=== PATIENT | female | born 1950 | race Caucasian/White ===

== ENCOUNTER 2024-08-21 15:19 | Outpatient (AMB) | payer OTHER, SELFPAY ==
--- NOTE | 2024-08-21 15:22 | A.OFFVIS_ITS ---
Vital Signs 08/21/24 15:32 Height 4 ft 11 in Weight 105 lb 13.15 oz BMI 21.4 BP 156/74 H Blood Pressure Location Lt brachial Position Sitting Pulse 75 Intake Visit Reasons: ibs Intake Note: Lynn presents in the office as a new patient for IBS. CC: She is here today for IBS - she has pains in the stomach and irregular bowel movements. She has been through a lot of tests for years now and she has not seen a GI specialists in 6 years. The one that she was seeing retired and now she is needing to be seen. She is having some flare ups and feels she is due to be seen by someone. Ballast Inspector Required: No Allergies No Known Allergies Allergy (Verified 08/21/24 15:33) HPI Comments Details: 73 y.o F with PMH of lonstanding IBS who is here to establish care. Was initially dx in 1994. Sx are mid epigastric pain which is sharp assoc with nausea and vomiting, diarrhea. Typically subsides within a day - better with resting/sleeping. At one point was seeing Dr Degroot and diagnosed with crohns ??based on UGIS. Pt states that had normal egd/colo prior to this which did not have abnormal Bx. Was on azathioprine but developed pancytopenia from this so self discontinued. Did not get any flares up. Switched care to Nancy Garcia. According to her review of the records at that time pt never had crohns. Currently, has been having more sx than usual for the past 2-3 months. Predominantly has diarrhea even without abd pain. Describes 3-4 loose watery BMs per day with urgency. No blood in stool. No night time sx. Imodium takes care of this in 2-3 doses. Also is bloated. Has been using gasex. No unintentional weight loss. Also thinks has lactose intolerance. Sx better if takes lactaid. Last colo - 2012. Normal. No fam hx of CRC. Remote smoking hx. No etOH use. Secondly, pt also reports dry cough worse x 2-3 months. Already on OTC PPI x [address] with nodules. Has not had PFTs. Records from [facility] and [facility] reviewed. Low iron sat on most recent labs without anemia. Vit D reported normal by pt. Review of Systems Const All systems reviewed & are unremarkable except as noted in HPI and below Physical Exam Vital Signs: Last Vital Signs Pulse 75 08/21/24 15:32 BP 156/74 H 08/21/24 15:32 BMI result Body Mass Index 21.4 No apparent distress Nonicteric Abdomen soft, nondistended Alert and oriented x3, normal gait Assessment & Plan Assessment & Plan (1) Change in bowel habit: Code(s): R19.4 - Change in bowel habit Category: Medical (2) Chronic diarrhea: Code(s): K52.9 - Noninfective gastroenteritis and colitis, unspecified Category: Medical (3) Malabsorption: Code(s): K90.9 - Intestinal malabsorption, unspecified Category: Medical (4) GERD (gastroesophageal reflux disease): Code(s): K21.9 - Gastro-esophageal reflux disease without esophagitis Category: Medical Plan 1. Reports frequent loose BMs x 2-3 months. Ddx include IBS flare, IBD, malabsorption, SIBO. Plan: - Labs as below - Given change in bowel habits at this age, will also recommend bidirectional endoscopy for compelte work up 2. ? GERD Ok to cont lansoprazole for now. Will get barium swallow Plan: - Barium esophagogram - if + for reflux, will favor H2 blockers nathan as pt wiht underlying osteoporosis - EGD as above Follow up after scopes Orders: Orders Ferritin Today K52.9 - Noninfective gastroenteritis and colitis, unspecified, K90.9 - Intestinal malabsorption, unspecified IRON PROFILE Today K52.9 - Noninfective gastroenteritis and colitis, unspecified, K90.9 - Intestinal malabsorption, unspecified Complete Blood Count no Diff Today K52.9 - Noninfective gastroenteritis and colitis, unspecified, K90.9 - Intestinal malabsorption, unspecified FL barium swallow Today K21.9 - Gastro-esophageal reflux disease without esophagitis C Reactive Protein Today K52.9 - Noninfective gastroenteritis and colitis, unspecified, K90.9 - Intestinal malabsorption, unspecified Calprotectin, Fecal Today K52.9 - Noninfective gastroenteritis and colitis, unspecified, K90.9 - Intestinal malabsorption, unspecified Vitamin D 25-OH Total Today K52.9 - Noninfective gastroenteritis and colitis, unspecified, K90.9 - Intestinal malabsorption, unspecified Transglutaminase IgA Today K52.9 - Noninfective gastroenteritis and colitis, unspecified, K90.9 - Intestinal malabsorption, unspecified TSH reflex Free T4 Today K52.9 - Noninfective gastroenteritis and colitis, unspecified, K90.9 - Intestinal malabsorption, unspecified Immunoglobulin A Today K52.9 - Noninfective gastroenteritis and colitis, unspecified, K90.9 - Intestinal malabsorption, unspecified Medications: New peg 3350-electrolytes 236-22.74-6.74 -5.86 gram (Golytely) as per split prep instructions, until fecal effluent is clear 240 mL PO Q10M 4,000 mL 0RF colonoscopy Coding Level of Care Code New Pt Level 5 (24984) Complex EM visit Add On G2211 Diagnoses Change in bowel habit R19.4 Chronic diarrhea K52.9 Malabsorption K90.9 GERD (gastroesophageal reflux disease) K21.9
[2024-08-21 15:32] VITALS: BP 156/74; PULSE 75; BMI 21.4
== END 2024-08-21 16:00 | disposition home or self-care (01) ==
PROVIDERS: PCP Physician Assistant; Visit Provider Internal Medicine
DX: K52.9 Noninfective gastroenteritis and colitis, unspecified (principal); K90.9 Intestinal malabsorption, unspecified; K21.9 Gastro-esophageal reflux disease without esophagitis
CPT/HCPCS: 99204

== ENCOUNTER → 2024-08-21 15:19 | Outpatient (BNVA) | payer OTHER, SELFPAY | PROVIDERS: PCP Physician Assistant; Visit Provider Internal Medicine ==

== ENCOUNTER 2024-08-23 13:16 | Outpatient (REF) | payer OTHER, SELFPAY ==
[2024-08-23 14:46] LABS: Hematocrit 40.7 % (37.0-47.0); Hemoglobin 12.6 g/dl (12.0-16.0); Mean Corpuscular Volume 90.4 fL (80.0-98.0); Mean Platelet Volume 9.4 fL (9.4-12.3); Platelet Count 377 X10*3/uL (160-400); Red Cell Distribution Width 14.7 % (11.0-16.0); White Blood Count 10.1 X10*3/uL (4.8-10.8)
[2024-08-23 15:32] LABS: C Reactive Protein 0.26 mg/dL (< or = 0.50); Iron 39 mcg/dL (30-160); Percent Iron Saturation 13 % (15-50); Total Iron Binding Capacity 294 mcg/dL (228-428); Unsaturated Iron Binding 255 ug/dL
[2024-08-23 15:49] LABS: Ferritin 17 ng/mL (10-250); TSH reflex Free T4 0.99 uIU/mL (0.32-4.0); Vitamin D 25-OH Total 52.9 ng/mL (>30)
[2024-08-26 06:38] LABS: Immunoglobulin A 196 mg/dL (70-320)
[2024-08-26 22:14] LABS: Transglutaminase IgA <1.0 U/mL
== END 2024-08-23 13:17 | disposition home or self-care (01) ==
LOC: HO.WFDLDS 13:16
PROVIDERS: Visit Provider Internal Medicine
DX: K52.9 Noninfective gastroenteritis and colitis, unspecified (principal); K90.9 Intestinal malabsorption, unspecified
CPT/HCPCS: 36415; 82306; 82728; 82784; 83540; 84443; 85027; 86140; 86364

== ENCOUNTER 2024-08-28 17:48 | Outpatient (REF) | payer OTHER, SELFPAY ==
--- OUTSIDE RECORDS SUMMARY | 2024-08-28 19:32 | XMS_ITS | Continuity of Care Document ---
Author Organization [place] - [facility], [facility] Address [address] [place] [phone] Assessment Encounter Date Assessment Date Assessment LastModified by Organization Details LastModified Time 08/27/2024 08/27/2024 73-year-old vanessa reyna presents for evaluation of cough. More than likely her cough is multifactorial in nature particularly given how long it has been present. Certainly could be exacerbated by hiatal hernia and reflux. Recommended she continue to follow with her events solutions consultant in regard to this issue. Could be exacerbated by postnasal drip for vasomotor rhinitis. Given nasal congestion recommended a trial of Flonase to begin with. Proper application discussed to avoid epistaxis. She will follow-up in 6 to 8 weeks for reevaluation. If not beneficial could trial Atrovent for dripping. All questions were answered. [email or web address] Not available 08/27/2024 16:25:57 Plan of Treatment Reminders Order Date Submit Date Provider Last Modified By Organization Details Last Modified Time Details Appointments None recorded. Lab None recorded. Referral None recorded. Procedures None recorded. Surgeries None recorded. Imaging None recorded. Medication Orders Flonase Allergy Relief 50 mcg/actua tion nasal spray,ashley pension 025 025 [facility] #[id number], [address] [facility], [place], [address], 16:27:05 Patient TargetsNo targets recorded. Patient InstructionsNo instructions recorded. Reason for Referral None Reported. Problems Name Problem SNOMED Code Status Onset Date Resolution Date Notes Provider Name and Address Organization Details Recorded Time Posterior rhinorrhea 55157079 Active 2024 RIGO HO PA-C [address] [facility], [place], [address], [facility] - [facility] 16:26:03 Gastroesophage al reflux disease without esophagitis 448455919 Active 2024 RIGO HO PA-C [address] [facility], [place], [address], [facility] - [facility] 16:26:17 Chronic cough 25374484 Active 2024 RIGO HO PA-C [address] [facility], [address], [place], [address], [facility] 16:26:23 Problem Notes None recorded. Medical Equipment None Reported. Allergies No known drug allergies Medications Name Sig Start Date Stop Date Status Note LastModified by Organization Details LastModified Time sucralfate 1 gram tablet TAKE 1 TABLET BY MOUTH 3 TIMES A DAY BEFORE MEALS AND BEDTIME NEEDED FOR DYSPEPSIA active Not Available Not Available No t Available ondansetron HCl 4 mg tablet TAKE 1 TABLET BY MOUTH EVERY 8 HOURS active Not Available Not Available No t Available alendronate 70 mg tablet TAKE 1 TABLET BY MOUTH EVERY WEEK active Not Available Not Available N ot Available GaviLyte-G 236 gram-22.74 gram-6.74 gram-5.86 gram oral solution TAKE 8OZ BY MOUTH EVERY 10 MINUTES PER SPLIT PREP INSTRUCTIO NS, UNTIL FECAL EFFLUENT IS CLEAR active Not Available Not Available No t Available Flonase Allergy Relief 50 mcg/actuation nasal spray,suspens ion 2 sprays each nostril once daily 2024 active Not Available Not Available Not Avai lable Vitals Date Recorded Body weight Body mass index (BMI) Body height Provider Name and Address Organization Details Last Updated DateTime 08/27/2024 92409.2 g 27.3 kg/m2 132.08 cm Heather Elkins [place] - [facility] 08/27/2024 16:06:26 Social History None recorded. Functional Status None recorded. Mental Status None recorded. Family History Nothing Reported. Medical History Condition Response Emphysema Y Bleeding Disorder Anemia Y Arthritis Y Kidney Disease Y Gynecological HistoryNo gynecological history recorded. Obstetrics History GPAL:G 0 P 0 0 0 0 Past Encounters Encounter ID Performer Location Encounter Start Date Encounter Closed Date Diagnosis/Indication Diagnosis SNOMED-CT Code Diagnosis ICD10 Code Diagnosis Note [id number] RIGO HO PA-C [facility] [address] [place] [address] 08/27/2024 15:22:16 08/27/2024 16:19:29 Posterior rhinorrhea 24636891 R09.82 Gastroesop hageal reflux disease without esophagitis 534334031 K21.9 Chronic cough 98248357 R 05.3 Health Concerns Section Related Observation LastModified by Organization Detai ls LastModified Time None Recorded Concern Status LastModified by Organization Details LastModified Time None Recorded Payers Encounter Date Sequence Insurance Name Policy Number Policy Zhou Covered Member ID Zhou Member ID Guarantor Name 08/27/2024 1 [facility] [id number] Lynn Mg [id number] Lynn Mg Notes Date Note Type Note Provider Name and Address Organization Details Recorded Time 08/27/2024 text/html 73-year-old vanessa reyna presents for evaluation of chronic cough. Cough has been present for about 8 years but has gotten worse over the last year or so. Initially she was evaluated by her primary care who suggested that this was due to postnasal drip and acid reflux as she has a known hiatal hernia. She takes lansoprazole once daily. Does continue to have occasional heartburn symptoms. Her primary care has completed chest x-ray, CT of the chest, and cardiac workup which were all fairly benign. She is scheduled to see a events solutions consultant and have an upper endoscopy in the near future. Does continue to have postnasal drip. Cough is typically nonproductive but most bothersome when she lies down at night, wakes up in the morning, and occasionally throughout the day. She does have nasal congestion which is intermittent. No pain or pressure in the face. Longstanding decrease sense of smell since she was a teenager. Taste is fine. RIGO HO PA-C [address] [place] [address], [phone], [facility] - [facility] 08/27/2024 16:27:20 OBGyn Episode No OBEpisode recorded.
--- OUTSIDE RECORDS SUMMARY | 2024-08-28 19:32 | XMS_ITS | Data Portability ---
Author Organization [place] - [facility], Allergy Address [address] [address] Assessment Encounter Date Assessment Date Assessment LastModified by Organization Details LastModified Time 08/27/2024 08/27/2024 73-year-old vanessa reyna presents for evaluation of cough. More than likely her cough is multifactorial in nature particularly given how long it has been present. Certainly could be exacerbated by hiatal hernia and reflux. Recommended she continue to follow with her industrial green systems designer in regard to this issue. Could be exacerbated by postnasal drip for vasomotor rhinitis. Given nasal congestion recommended a trial of Flonase to begin with. Proper application discussed to avoid epistaxis. She will follow-up in 6 to 8 weeks for reevaluation. If not beneficial could trial Atrovent for dripping. All questions were answered. [email or web address] Not available 08/27/2024 16:25:57 Plan of Treatment Reminders Order Date Submit Date Provider Last Modified By Organization Details Last Modified Time Details Appointments None recorded. Lab None recorded. Referral None recorded. Procedures None recorded. Surgeries None recorded. Imaging None recorded. Medication Orders Flonase Allergy Relief 50 mcg/actua tion nasal spray,ashley pension 025 025 [facility]/Ph[facility]acy #[id number], [address] [facility], [place], [address], 16:27:05 Patient TargetsNo targets recorded. Patient InstructionsNo instructions recorded. Reason for Referral None Reported. Problems Name Problem SNOMED Code Status Onset Date Resolution Date Notes Provider Name and Address Organization Details Recorded Time Posterior rhinorrhea 86835079 Active 2024 RIGO HO PA-C [address] [address], [place], [address], [place] - [facility] 16:26:03 Gastroesophage al reflux disease without esophagitis 498436373 Active 2024 RIGO HO PA-C [address] [facility], [place], [address], [place] - [facility] 16:26:17 Chronic cough 83211158 Active 2024 RIGO HO PA-C 100 [facility] [address], [place], [address], [facility] - [facility] 16:26:23 Problem Notes None recorded. Medical [...] Address Organization Details Last Updated DateTime 08/27/2024 71622.2 g 27.3 kg/m2 132.08 cm Heather Elkins [place] - [facility] 08/27/2024 16:06:26 Social History None recorded. [...] SNOMED-CT Code Diagnosis ICD10 Code Diagnosis Note [id number] RIGO HO PA-C [facility] [address] [place] [address] 08/27/2024 15:22:16 08/27/2024 16:19:29 Posterior rhinorrhea 99005794 R09.82 Gastroesop hageal reflux disease without esophagitis 596290056 K21.9 Chronic cough 24921782 R 05.3 Health Concerns Section Related Observation LastModified by Organization Detai ls LastModified Time None Recorded Concern Status LastModified by Organization Details LastModified Time None Recorded Advance Directives Directive None Recorded Payers Encounter Date Sequence Insurance Name Policy Number Policy Zhou Covered Member ID Zhou Member ID Guarantor Name 08/27/2024 1 [facility] [id number] Lynn Mg [id number] Lynn Mg Notes Date Note Type Note [...] benign. She is scheduled to see a industrial green systems designer and have an upper endoscopy in the [...] teenager. Taste is fine. RIGO HO PA-C [address] [place] [address], [phone], [facility] - [facility] 08/27/2024 16:27:20 OBGyn Episode No OBEpisode recorded.
[2024-09-04 20:29] LABS: Calprotectin, Fecal 407 mcg/g
== END 2024-08-28 17:49 | disposition home or self-care (01) ==
LOC: HO.LNP 17:48
PROVIDERS: Visit Provider Internal Medicine
DX: K52.9 Noninfective gastroenteritis and colitis, unspecified (principal); K90.9 Intestinal malabsorption, unspecified
CPT/HCPCS: 83993

== ENCOUNTER 2024-11-07 09:44 | Outpatient (REF) | payer OTHER, SELFPAY ==
--- NOTE | ~2024-11-07 | FL_ITS ---
EXAMINATION: XR BARIUM SWALLOW CLINICAL INFORMATION: Gastroesophageal reflux disease without esophagitis. COMPARISON: None available. TECHNIQUE: Modified barium swallow was done in upright view following oral administration of thick barium and saltine crackers. Patient was subsequently placed in prone lying position and thin barium was administered. FINDINGS: Following oral administration of thick barium there is normal propagation bolus from the oral cavity through the pharynx into the esophagus without obstruction. 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 There is no extrinsic compression. Prominent cervical esophageal sphincter is noted. On oral administration of saltine crackers coated with barium there there is normal oral mastication face with propagation bolus into the midesophagus. There is no propagation of solid food from the mid esophagus distal esophagus segment due to in the distal esophagus. However this cleared with oral administration of thick barium. On placing patient prone lying and oral administration of thin barium there is good distention of the entire esophagus without any intraluminal filling defect or obstruction. There is a small hiatal hernia with mild gastroesophageal reflux. FLUOROSCOPY TIME: 2 minutes 23 seconds DOSE AREA PRODUCT: 1131 uGy-m2 (microgray-meter squared) FL/FL barium swallow IMPRESSION: Small hiatal hernia with moderate gastroesophageal reflux. There is slight delayed propagation of solid food from mid to distal esophagus due to early Presby esophagus has tertiary peristalsis. However this subsequently cleared with oral administration of thick barium. Electronically signed by: Abhijeet Oconnell MD 11/07/2024 12:06 PM EDT
== END 2024-11-07 09:45 | disposition home or self-care (01) ==
LOC: HO.XRAY 09:44
PROVIDERS: PCP Physician Assistant; Visit Provider Internal Medicine
DX: K21.9 Gastro-esophageal reflux disease without esophagitis (principal)
CPT/HCPCS: 74220

== ENCOUNTER → 2024-11-07 09:47 | Outpatient (BNV) | payer OTHER, SELFPAY | PROVIDERS: PCP Physician Assistant; Visit Provider Radiology Diagnostic Radiology | DX: K21.9 Gastro-esophageal reflux disease without esophagitis (principal) | CPT/HCPCS: 74220 ==

== ENCOUNTER 2025-05-13 11:57 | Day surgery (SDC) | payer OTHER, SELFPAY ==
--- OUTSIDE RECORDS SUMMARY | 2025-04-18 12:10 | XMS_ITS | Data Portability ---
Author Organization [place] - [facility], Allergy Address [address] [address] Assessment Encounter Date Assessment Date Assessment LastModified by Organization Details LastModified Time 08/27/2024 08/27/2024 73-year-old vanessa reyna presents for evaluation of cough. More than likely her cough is multifactorial in nature particularly given how long it has been present. Certainly could be exacerbated by hiatal hernia and reflux. Recommended she continue to follow with her vocational childcare teacher in regard to this issue. Could be exacerbated by postnasal drip for vasomotor rhinitis. Given nasal congestion recommended a trial of Flonase to begin with. Proper application discussed to avoid epistaxis. She will follow-up in 6 to 8 weeks for reevaluation. If not beneficial could trial Atrovent for dripping. All questions were answered. [email or web address] Not available 08/27/2024 16:25:57 Plan of Treatment Reminders Order Date Submit Date Provider Last Modified By Organization Details Last Modified Time Details Appointments None recorded. Lab None recorded. Referral None recorded. Procedures None recorded. Surgeries None recorded. Imaging None recorded. Medication Orders Flonase Allergy Relief 50 mcg/actua tion nasal spray,ashley pension 025 025 [facility]acy #[id number], [address], [place], [address], 16:27:05 Patient TargetsNo targets recorded. Patient InstructionsNo instructions recorded. Reason for Referral None Reported. Problems Name Problem SNOMED Code Status Onset Date Resolution Date Notes Provider Name and Address Organization Details Recorded Time Posterior rhinorrhea 66652889 Active 2024 RIGO HO PA-C [address] [facility],[address] [address], [place], [address], [facility] - [facility] 16:26:03 Gastroesophage al reflux disease without esophagitis 243259759 Active 2024 RIGO HO PA-C [address] [facility] [address], [place], [address], [facility] - [facility] 16:26:17 Chronic cough 28592827 Active 2024 RIGO HO PA-C [address] [facility],[address] [address], [place], [address], [facility] 16:26:23 Problem Notes None recorded. Medical Equipment [...] Not Available Not Available N ot Available fluticasone propionate 50 mcg/actuation nasal spray,suspens ion SPRAY 2 SPRAYS INTO EACH NOSTRIL EVERY DAY active Not Available Not Available No t Available GaviLyte-G 236 gram-22.74 gram-6.74 gram-5.86 gram oral solution TAKE 8OZ BY MOUTH EVERY 10 MINUTES PER SPLIT PREP INSTRUCTIO NS, UNTIL FECAL EFFLUENT IS CLEAR active Not Available Not Available No t Available Vitals Date Recorded Body weight Body mass index (BMI) Body height Provider Name and Address Organization Details Last Updated DateTime 08/27/2024 32916.2 g 27.3 kg/m2 132.08 cm Haether Elkins [place] - [facility] 08/27/2024 16:06:26 Social History None recorded. Functional [...] Diagnosis SNOMED-CT Code Diagnosis ICD10 Code Diagnosis IMO Codes Diagnosis Note [id number] RIGO HO PA-C [facility] of [address] [address] 08/27/2024 15:22:16 08/27/2024 16:19:29 Posterior rhinorrhea 95728860 R09.82 Gastroesop hageal reflux disease without esophagitis 947438097 K21.9 Chronic cough 79766428 R 05.3 Health Concerns Section Related Observation LastModified by Organization Detai ls LastModified Time None Recorded Concern Status LastModified by Organization Details LastModified Time None Recorded Advance Directives Directive None Recorded Payers Insurance Date Sequence Insurance Name Policy Number Policy Zhou Covered Member ID Zhou Member ID Guarantor Name 08/27/2024 1 [employer] [facility] [employer] INDEMNITY PLAN (INDEMNITY) [id number] 7 Lynn Mg [id number] Lynn Mg 08/27/2024 1 [employer] [facility] PHCS (PPO) [id number] 7 Lynn Mg [id number] Lynn Mg Notes Date Note Type Note Provider Name and Address Organization Details Recorded Time 08/27/2024 text/html ROS as noted in the HPI 73-year-old female presents for evaluation of chronic cough. Cough [...] benign. She is scheduled to see a vocational childcare teacher and have an upper endoscopy in the [...] teenager. Taste is fine. RIGO HO PA-C [address] [address], [place], [address], [facility] - [facility] 08/27/2024 16:27:20 OBGyn Episode No OBEpisode recorded.
[2025-05-09 11:14] VITALS: BMI 21.4
--- NOTE | 2025-05-09 11:50 | HO.ANESPROP2 ---
Documented by User: Arlen Santo NP 05/09/25 11:57 HPI - Anesthesia Eval Consult details Narrative: 74 yr old female for Upper Endoscopy and Colonoscopy PMF Active Problems Active Problems: All Active Problems (Updated 05/09/25 @ 11:12 by Adelia Durham RN) Change in bowel habit (Acute) Malabsorption (Acute) Chronic diarrhea (Acute) GERD (gastroesophageal reflux disease) (Acute) Past Medical History Medical History IBS (irritable bowel syndrome) Anemia Osteoporosis Chronic diarrhea GERD (gastroesophageal reflux disease) Surgical History Surgical History H/O colonoscopy History of esophagogastroduodenoscopy (EGD) Social History Social History Patient Tobacco Use Status: Never used Tobacco Use of substances other than those prescribed or required for medical reasons: Yes Substance Use Frequency: Occasionally Advance Directives: No Advance Directives Information Provided: Yes Meds Allergies Allergy/AdvReac Type Severity Reaction Status Date / Time No Known Allergies Allergy Verified 08/21/24 15:33 Home Medications ?Medication ?Instructions ?Recorded ?Confirmed ?Last Taken ?Type alendronate 70 mg tablet 70 mg PO QWEEK 08/21/24 05/09/25 Unknown History calcium carb, citrate, malate mg PO 08/21/24 Unknown History cholecalciferol (vitamin D3) 25 25 mcg PO DAILY 08/21/24 Unknown History mcg (1,000 unit) capsule dicyclomine 10 mg capsule 10 mg PO BID PRN 08/21/24 Unknown History ferrous gluconate 324 mg (38 mg 324 mg PO DAILY 08/21/24 Unknown History iron) tablet glucosamine sulfate 1,500 mg oral mg PO 08/21/24 Unknown History powder packet glutamine 1,000 mg tablet 1,000 mg PO BID 08/21/24 Unknown History (L-Glutamine) ewrknjyn-qksfaxgu-nwjyv acid 240 tab PO 08/21/24 Unknown History mcg-vit K1 150 mcg-herb 357 tablet (Alive Women's 50 Plus Ultra Multivitamin) ondansetron 4 mg disintegrating 4 mg PO Q8H PRN 08/21/24 Unknown History tablet vitamin K2 180 mcg capsule 180 mcg PO DAILY 08/21/24 Unknown History Exam Height,Weight and Vital Signs: Height 4 ft 11 in Weight 48.081 kg Documented by User: Trina Dye MD 05/13/25 12:56 [facility] Past Medical History Medical History IBS (irritable bowel syndrome) Anemia Osteoporosis Chronic diarrhea GERD (gastroesophageal reflux disease) Surgical History Surgical History H/O colonoscopy History of esophagogastroduodenoscopy (EGD) Social History Social History Patient Tobacco Use Status: Never used Tobacco Use of substances other than those prescribed or required for medical reasons: Yes Substance Use Frequency: Occasionally Advance Directives: No Advance Directives Information Provided: Yes Meds Allergies Allergy/AdvReac Type Severity Reaction Status Date / Time No Known Allergies Allergy Verified 08/21/24 15:33 Home Medications ?Medication ?Instructions ?Recorded ?Confirmed ?Last Taken ?Type alendronate 70 mg tablet 70 mg PO QWEEK 08/21/24 05/09/25 Unknown History calcium carb, citrate, malate mg PO 08/21/24 Unknown History cholecalciferol (vitamin D3) 25 25 mcg PO DAILY 08/21/24 Unknown History mcg (1,000 unit) capsule dicyclomine 10 mg capsule 10 mg PO BID PRN 08/21/24 Unknown History ferrous gluconate 324 mg (38 mg 324 mg PO DAILY 08/21/24 Unknown History iron) tablet glucosamine sulfate 1,500 mg oral mg PO 08/21/24 Unknown History powder packet glutamine 1,000 mg tablet 1,000 mg PO BID 08/21/24 Unknown History (L-Glutamine) rxcxofzd-exrgtktz-nfyfc acid 240 tab PO 08/21/24 Unknown History mcg-vit K1 150 mcg-herb 357 tablet (Alive Women's 50 Plus Ultra Multivitamin) ondansetron 4 mg disintegrating 4 mg PO Q8H PRN 08/21/24 Unknown History tablet vitamin K2 180 mcg capsule 180 mcg PO DAILY 08/21/24 Unknown History Exam Airway Mallampati Class: II TM Dist: >3cm Neck ROM: Full Loose/Missing/Broken Teeth: No Heart: RRR Lungs: CTA Assessment and Plan Assessment Anesthesia Assessment: Anesthesia Plan Discussed and Chart Reviewed Final Anesthetic Review NPO: Yes ASA Class: II Final Preanesthetic Review: Meds/Allgs Chart Reviewed, Consent Obtained/Reviewed and Anes Risks/Benef Reviewed Patient Risk: Low Procedure Risk: Intermediate Anesthetic Plan Anesthetic Plan: MAC: Disposition: Standard PACU
[2025-05-13 12:12] VITALS: BMI 21.1
[2025-05-13] MEDS: Lactated Ringers 1,000 ML 100 ML IVCONT (12:30)
[2025-05-13 12:31] VITALS: BP 146/77; PULSE 87; RESP 16; TEMP 37.3; O2SAT 98
--- NOTE | 2025-05-13 12:40 | MHC.SHP ---
Pre-Procedural Eval Section A - 24 Hr Update-Section A only Date of Service: 05/13/25 Section B - Complete if H&P > 30 days Chief Complaint: chronic diarrhea Present Medications: see Short Stay Collaborative assessment Allergies: Allergies Allergy/AdvReac Type Severity Reaction Status Date / Time No Known Allergies Allergy Verified 08/21/24 15:33 Review of Systems Review of Systems Comment: Ten point ROS negative Exam Exam Comment: Gen appear: No acute distress HEENT: no icterus Chest: No overt resp distress Abd: soft, nontender, nondistended Psych: Stable affect, answering questions appropriately Neuro: A/Ox3 noted to move all extremities spontaneously Ext: no peripheral edema Plan Diagnosis/Plan: Unchanged I have reviewed the history and physical and performed a pertinent physical examination on my patient. No changes have occurred unless specified. Time Spent With Patient Time: Total time managing care of this patient today ____ minutes.
[2025-05-13 14:30] VITALS: BP 140/74; PULSE 81; RESP 14; TEMP 36.4; O2SAT 99
--- NOTE | 2025-05-13 14:31 | P.OPN-COLO_ITS ---
Colonoscopy Operative Note Operative Note Date of Service: 05/13/25 Narrative: Procedure: Upper endoscopy and colonoscopy Indication: Chronic diarrhea Endoscopist: Jodee Mackay MD Anesthesia Provider: Helder Townsend CRNA Anesthesia type: MAC Instrument: [id number] and [id number]-[id number] EGD Procedure:?? The procedure, indications, preparation and potential complications were reviewed with the patient, who indicated understanding and gave written informed consent to proceed. The endoscope was introduced through the mouth, and advanced to the 2nd part of the duodenum. The mucosa was carefully examined on slow withdrawal of the endoscope. The patient tolerated the procedure well. There were no immediate complications.? EGD Findings:? * Esophagus:? Normal esophageal mucosa was noted. The Z-line was at 34 cm, displaced by a hiatal hernia with the diaphragmatic pinch at 36 cm. * Stomach:? Normal gastric mucosa. A few small polyps noted in the fundus likely fundic gland polyps. One polyp of size 8 mm in proximal gastric antrum along lesser curvature. Cold forceps polypectomy was performed. Retroflexion was performed in the cardia that showed Hill grade III hiatal hernia. Random cold forceps biopsies were taken from the stomach. * Duodenum:? Normal duodenal mucosa. Cold forceps biopsies were taken from the duodenal bulb and 2nd portion of the duodenum to rule out celiac sprue. Colonoscopy Procedure:? The patient was then turned for the colonoscopy. A digital rectal exam was performed which was abnormal for hemorrhoids.? A distal attachment cap was affixed to the tip of the scope and the colonoscope was then inserted through the anus and advanced through the colon and advanced to the cecum at 80 cm and terminal ileum.? Appendiceal orifice and ileocecal valve were identified. Mucosa was carefully examined under high definition white light as the instrument was slowly withdrawn in a retrograde panoramic fashion. Retroflexion was performed in rectum. The procedure was not difficult. The quality of the prep was BBPS: 2+3+2 = adequate Withdrawal time 13 minutes Limitations: No limitations Findings: Mucosa: Normal colon and terminal ileum mucosa. COld forceps biopsies were taken from right and left side of the colon to rule out microscopic colitis. Protruding lesions: * 1 sessile polyp of size 2 mm in descending colon. Cold forceps polypectomy was performed. The polyp was completely removed and retrieved. * 2 sessile polyps of size 3-4 mm in sigmoid colon. Cold forceps polypectomy was performed. The polyps were completely removed and retrieved. * Medium internal hemorrhoids without stigmata of recent bleeding. Impression: 1. Normal esophagus 2. Hiatal hernia 3. Gastric polyps (biopsy) 4. Normal stomach (biopsy) 5. Normal duodenum (biopsy) 6. Normal colon and terminal ileum mucosa (biopsy) 7. Total 3 polyps removed 8. Internal and external hemorrhoids Recommendations:?? * Follow-up path results * Avoid NSAIDs * H Pylori treatment if biopsies + * Repeat colonoscopy for CRC screening in 3 years if all polyps are adenomas. If only 1-2 polyps are adenomas can potentially defer future colo due to age.
[2025-05-13 14:33] VITALS: BP 130/73; PULSE 81; RESP 14; O2SAT 99
== END 2025-05-13 15:07 | disposition home or self-care (01) ==
PROVIDERS: PCP Physician Assistant; Visit Provider Internal Medicine
PROC: (CPT 45380; principal; 2025-05-13 14:20)
DX: K52.9 Noninfective gastroenteritis and colitis, unspecified (principal); R19.4 Change in bowel habit; K90.9 Intestinal malabsorption, unspecified; K21.9 Gastro-esophageal reflux disease without esophagitis; K31.7 Polyp of stomach and duodenum; K64.8 Other hemorrhoids; K44.9 Diaphragmatic hernia without obstruction or gangrene; K63.5 Polyp of colon
CPT/HCPCS: 45380; 43239; 88305; 88313; 88342; J2003; J2704

== ENCOUNTER → 2025-05-13 11:57 | Outpatient (BNV) | payer OTHER, SELFPAY | PROVIDERS: PCP Physician Assistant; Visit Provider Internal Medicine | DX: K52.9 Noninfective gastroenteritis and colitis, unspecified (principal); K63.5 Polyp of colon; K64.8 Other hemorrhoids; K31.7 Polyp of stomach and duodenum | CPT/HCPCS: 43239; 45380 ==

== ENCOUNTER 2025-06-09 09:49 | Outpatient (AMB) | payer OTHER, SELFPAY ==
--- NOTE | 2025-06-09 09:52 | MHC.OFFVIS ---
Vital Signs 06/09/25 09:53 Height 4 ft 11 in Weight 101 lb 6.602 oz BMI 20.5 BP 140/69 H Blood Pressure Location Lt brachial Position Sitting Pulse 71 Intake Visit Reasons: s/p colo and egd Intake Note: Lynn presents in the office as a follow up for her EGD and COLO. CC: states her IBS acts up randomly and she wants more control of it. Vp Purchasing Required: No Allergies No Known Allergies Allergy (Verified 06/09/25 09:54) HPI Comments Details: 73 y.o F with PMH of lonstanding IBS who is here to establish care. Was initially dx in 1994. Sx are mid epigastric pain which is sharp assoc with nausea and vomiting, diarrhea. Typically subsides within a day - better with resting/sleeping. At one point was seeing Dr Degroot and diagnosed with crohns ??based on UGIS. Pt states that had normal egd/colo prior to this which did not have abnormal Bx. Was on azathioprine but developed pancytopenia from this so self discontinued. Did not get any flares up. Switched care to [facility]. According to her review of the records at that time pt never had crohns. Currently, has been having more sx than usual for the past 2-3 months. Predominantly has diarrhea even without abd pain. Describes 3-4 loose watery BMs per day with urgency. No blood in stool. No night time sx. Imodium takes care of this in 2-3 doses. Also is bloated. Has been using gasex. No unintentional weight loss. Also thinks has lactose intolerance. Sx better if takes lactaid. Last colo - 2012. Normal. No fam hx of CRC. Remote smoking hx. No etOH use. Secondly, pt also reports dry cough worse x 2-3 months. Already on OTC PPI x [address] with nodules. Has not had PFTs. Records from [place] and [facility] reviewed. Low iron sat on most recent labs without anemia. Vit D reported normal by pt. EGD/colo 04/2025: 1. Normal esophagus 2. Hiatal hernia 3. Gastric polyps (biopsy) 4. Normal stomach (biopsy) 5. Normal duodenum (biopsy) 6. Normal colon and terminal ileum mucosa(biopsy) 7. Total 3 polyps removed 8. Internal and external hemorrhoids Path: A. Duodenum, biopsy: Duodenal mucosa within normal limits. B. Stomach, random, biopsy: Antral-type and oxyntic mucosa with moderate chronic inactive inflammation; no Helicobacter organisms seen. C. Stomach, polypectomy: Oxyntic mucosa with mild chronic inactive inflammation surface hyperplastic changes; no Helicobacter organism seen. D. Colon, right, biopsy: Colonic mucosa within normal limits. E. Colon, left, biopsy: Colonic mucosa within normal limits. F. Colon, descending, polypectomy: Colonic mucosa with mild surface hyperplastic changes. G. Colon, sigmoid, polypectomies: Hyperplastic mucosal polyps. 06/09/25: Here for post endoscopy follow up. Results of the EGD/colo reviewed. The patient's primary complaint is chronic diarrhea, which normally consists of one bowel movement per day but sometimes increases to two. She has experienced a recent decrease in the frequency of her diarrhea flare-ups, which she associates with a reduction in stress after moving; previously, flare-ups occurred almost weekly. She continues to experience random episodes of abdominal pain, cramping, and bloating, sometimes without an identifiable trigger. Her relevant medical history includes osteoporosis. She takes njzz-cox-xgxmctv lansoprazole for acid reflux but did not tolerate a trial of famotidine, which was suggested as a better alternative for bone health. She also reports a sensitivity to lactose. Socially, the patient notes significant recent stress related to selling her long-time home, buying a new house, and moving, all following the loss of her two years prior. --- Pt was informed and consented to the use of ambient scribe for this encounter. --- [facility] Medical History IBS (irritable bowel syndrome) Anemia Osteoporosis Chronic diarrhea GERD (gastroesophageal reflux disease) Surgical History H/O colonoscopy History of esophagogastroduodenoscopy (EGD) Social History Patient Tobacco Use Status: Never used Tobacco Review of Systems Narrative Review of Systems Const All systems reviewed & are unremarkable except as noted in HPI and below Physical Exam Exam Exam: Physical Exam No apparent distress Nonicteric Abdomen soft, nondistended Alert and oriented x3, normal gait Vital Signs: Last Vital Signs Pulse 71 06/09/25 09:53 BP 140/69 H 06/09/25 09:53 BMI result Body Mass Index 20.5 Assessment & Plan Assessment & Plan (1) Change in bowel habit: Code(s): R19.4 - Change in bowel habit Category: Medical (2) Chronic diarrhea: Code(s): K52.9 - Noninfective gastroenteritis and colitis, unspecified Category: Medical (3) Malabsorption: Code(s): K90.9 - Intestinal malabsorption, unspecified Category: Medical (4) GERD (gastroesophageal reflux disease): Code(s): K21.9 - Gastro-esophageal reflux disease without esophagitis Category: Medical Plan 1. Abd pain, bloating and diarrhea. No colitis noted on endoscopic w/up including microscopic colitis. DDx includes SIBO, malabsorption, IBS-D. Plan: - Rifaximin 550 TID x 14 days for possible SIBO vs IBS-D. - She is advised to take a concurrent probiotic supplement. - A prescription for dicyclomine will be refilled for as-needed use for abdominal cramping. 2. GERD and Hiatal Hernia - The patient manages symptoms with sddn-hoy-aececjw lansoprazole. - A trial of famotidine was not tolerated due to upset stomach. - The plan is for her to continue lansoprazole for now, with the understanding that famotidine is preferred long-term due to her osteoporosis. 3. History of polyps - Future colo not recommended due to age. Follow up 2 months Medications: New dicyclomine 10 mg PO BID PRN 90 caps 1RF abdominal pain rifaximin 550 mg PO TID 42 tabs 0RF 14 days Coding Level of Care Code Est Pt Level 4 (39367) Diagnoses Change in bowel habit R19.4 Chronic diarrhea K52.9 Malabsorption K90.9 GERD (gastroesophageal reflux disease) K21.9
[2025-06-09 09:53] VITALS: BP 140/69; PULSE 71; BMI 20.5
== END 2025-06-09 10:22 | disposition home or self-care (01) ==
LOC: HO.HGI 09:50
PROVIDERS: PCP Physician Assistant; Visit Provider Internal Medicine
DX: R19.4 Change in bowel habit (principal); K52.9 Noninfective gastroenteritis and colitis, unspecified; K90.9 Intestinal malabsorption, unspecified; K21.9 Gastro-esophageal reflux disease without esophagitis
CPT/HCPCS: 99214